=== PATIENT | male | born 1945 | race Caucasian/White ===

== ENCOUNTER 2021-03-20 15:51 | Emergency (ER) | payer OTHER ==
[2021-03-20] MEDS ORDERED: CEPHALEXIN500 M1 PO (21:57)
== END 2021-03-20 22:47 | disposition home or self-care (01) ==
LOC: FER 15:51
DX: S61.213A Laceration without foreign body of left middle finger without damage to nail, initial encounter (principal); E10.9 Type 1 diabetes mellitus without complications; W22.8XXA Striking against or struck by other objects, initial encounter; Y92.009 Unspecified place in unspecified non-institutional (private) residence as the place of occurrence of the external cause
CPT/HCPCS: 73130

== ENCOUNTER → 2021-05-17 | Day surgery (SDC) | payer OTHER ==
[~2021-05-17] VITALS: Ht 185.4 cm; Wt 75.2 kg
[~2021-05-17] MED LIST: CEPHALEXIN500 M1 PO; D3-501250 MCG PO; GLIPIZIDE 5 MG (5 MG PO; LANTUS **100 UNITS/ IJ; LISINOPRIL20 MG PO; METFORMIN HCL1000 MG PO; ZOCOR40 MG PO
== END | disposition home or self-care (01) ==
LOC: FAS 07:40
DX: Z12.11 Encounter for screening for malignant neoplasm of colon (principal); Z86.010 Personal history of colon polyps; Z85.038 Personal history of other malignant neoplasm of large intestine; Z79.84 Long term (current) use of oral hypoglycemic drugs; D12.0 Benign neoplasm of cecum; E11.9 Type 2 diabetes mellitus without complications; Z79.4 Long term (current) use of insulin; K62.1 Rectal polyp; I10 Essential (primary) hypertension; G47.30 Sleep apnea, unspecified; E78.5 Hyperlipidemia, unspecified
CPT/HCPCS: J2250; J2704; J7120